=== PATIENT | male | born 1950 | race Caucasian/White ===

== ENCOUNTER → 2023-03-29 | Outpatient (CLI) | payer MEDICARE | END | disposition home or self-care (01) | LOC: RESCLI 08:38 | PROVIDERS: ATTEND Internal Medicine | DX: E11.9 Type 2 diabetes mellitus without complications (principal); I10 Essential (primary) hypertension; E78.5 Hyperlipidemia, unspecified; Z88.0 Allergy status to penicillin; F10.90 Alcohol use, unspecified, uncomplicated; Z87.891 Personal history of nicotine dependence; M48.00 Spinal stenosis, site unspecified; Z79.899 Other long term (current) drug therapy ==